=== PATIENT | female | born 1955 | race Caucasian/White ===

== ENCOUNTER → 2019-07-24 08:48 | Outpatient (CLI) | payer MEDICARE, SELFPAY ==
--- NOTE | 2019-07-24 | DI.MRI.S_ITS ---
PROCEDURE: MR LUMBAR SPINE WO CON INDICATIONS: Lumbago with sciatica, left side TECHNIQUE: Noncontrast sagittal T1 spin echo and T2 fast echo, sagittal STIR, axial T1 and T2 fast spin echo through the lumbar spine. Axial and oblique coronal T1 spin echo and STIR through the sacrum. In cases with scoliosis, additional coronal T2 fast spin echo may be performed. COMPARISON: None. FINDINGS: Image quality: Excellent. Alignment and Curvature: Trace degenerative retrolisthesis of the L4 and L5. Trace degenerative anterolisthesis of L2 on L3. Bone Marrow: Marrow is of normal overall signal. No acute vertebral body compression fractures. No sacral fractures. Spinal Cord: Conus medullaris terminates at the L1-L2 level. Visualized cord demonstrates normal signal and size. Paraspinous Soft Tissues: No paravertebral masses. T12-L1: No canal stenosis or foraminal stenosis. L1-L2: No canal stenosis or foraminal stenosis. Mild facet hypertrophy. L2-L3: Minimal disc bulge. Facet and ligament hypertrophy. Mild canal stenosis. No foraminal stenosis. L3-L4: Moderate chronic disc height loss. Disc bulge and facet and ligament hypertrophy. Mild canal stenosis. Bilateral foraminal disc bulges resulting in mild to moderate bilateral foraminal narrowing. L4-L5: Moderate chronic disc height loss. Diffuse disc bulge. Facet and ligament hypertrophy. Moderate to severe central canal stenosis. Bilateral lateral recess stenosis. Right foraminal disc protrusion plus facet hypertrophy results in moderate to severe right foraminal narrowing and flattening deformity on the right L4 nerve root in the foramen. L5-S1: Mild disc bulge. Mild facet and ligament hypertrophy. No significant canal stenosis. Moderate left foraminal narrowing with mild flattening deformity on the left L5 nerve root. IMPRESSION: 1. Multifactorial canal stenosis is mild at L3-L4 and moderate to severe L4-L5. 2. Moderate to severe right foraminal narrowing at L4-L5. Moderate left foraminal narrowing at L5-S1. Dictated by: Leandro Mckoy M.D. on 07/26/2019 at 8:53 Approved by: Leandro Mckoy M.D. on 07/26/2019 at 9:41
== END ==
PROVIDERS: Visit Provider Orthopaedic Surgery Orthopaedic Surgery of the Spine
DX: M54.42 Lumbago with sciatica, left side (principal); M48.061 Spinal stenosis, lumbar region without neurogenic claudication; M48.07 Spinal stenosis, lumbosacral region
CPT/HCPCS: 72148